=== PATIENT | female | born 1970 | race Hispanic/Latino ===

== ENCOUNTER 2020-01-30 20:25 | Inpatient (IN) | payer BC ==
[~2020-01-30] VITALS: Ht 147.3 cm; Wt 63.5 kg
[2020-01-30] MEDS ORDERED: ONDANSETRON HCL 4 MG/2 ML VIAL ONE (20:59)
[2020-01-30] MEDS ORDERED: KETOROLAC TROMETHAMINE 30MG/ML ONE (21:00)
[2020-01-30] MEDS ORDERED: SODIUM CHLORIDE 0.9% 1000ML 1,000 ML IV ONE (21:00)
[2020-01-30 21:04] LABS: BASOPHILS % (AUTO) 0.2 % (0.0-5.0); EOSINOPHILS % (AUTO) 0.2 % (0.0-8.0); HEMATOCRIT 37.2 % (36-48); LYMPHOCYTES % (AUTO) 16.3 % (21.0-51.0); MEAN CORPUSCULAR HEMOGLOBIN 30.6 pg (27.0-33.0); MEAN CORPUSCULAR HGB CONC 33.1 g/dL (32.0-36.0); MEAN CORPUSCULAR VOLUME 92.5 fL (79-99); MONOCYTES % (AUTO) 8.8 % (3.0-13.0); NEUTROPHILS % (AUTO) 74.3 % (40.0-77.0); PLATELET COUNT (AUTO) 415 K/uL (130-400); RED BLOOD CELL COUNT(AUTO) 4.02 MIL/uL (4.00-5.50); RED CELL DISTRIBUTION WIDTH 12.8 % (11.0-15.5); WHITE BLOOD COUNT (AUTO) 8.3 K/uL (4.8-10.8)
[2020-01-30 21:06] LABS: APPEARANCE,URINE CLOUDY (CLEAR); BILIRUBIN,URINE NEGATIVE (NEGATIVE); COLOR,URINE YELLOW (YELLOW); GLUCOSE, URINE (UA) NEGATIVE (NEGATIVE); KETONES,URINE NEGATIVE (NEGATIVE); LEUKOCYTE ESTERASE ,URINE SMALL (NEGATIVE); NITRATE,URINE NEGATIVE (NEGATIVE); OCCULT BLOOD,URINE NEGATIVE (NEGATIVE); PH,URINE 8.5 (5.0-8.0); PROTEIN,URINE 30 mg/dL (NEGATIVE)
[2020-01-30 21:16] LABS: CREATININE 0.7 mg/dL (0.5-1.5); POTASSIUM 3.3 mmol/L (3.5-5.1)
[2020-01-30 21:18] LABS: INR 0.93 (0.85-1.15); PARTIAL THROMBOPLASTIN TIME 29.1 SEC (26.3-35.5); PROTHROMBIN TIME 10.1 SEC (9.6-11.6)
[2020-01-30 21:20] LABS: ALBUMIN 3.8 g/dL (3.5-5.0); BILIRUBIN,DIRECT 0.2 mg/dL (0.0-0.3); BILIRUBIN,TOTAL 0.6 mg/dL (0.2-1.0); TOTAL PROTEIN, SERUM 8.1 g/dL (6.0-8.3)
[2020-01-30 22:01] LABS: BACTERIA,URINE Few /HPF (None Seen); RBC,URINE None Seen /HPF (0-1)
[2020-01-30 22:02] LABS: AMORPHOUS SEDIMENT,UR Many /LPF (None Seen); SQUAMOUS EPITHELIAL CELL,UR 0-2 /HPF (0-2)
[2020-01-31] VITALS (7 sets, daily range): BP systolic 97–125; BP diastolic 42–80
[2020-01-31] MEDS ORDERED: ZOSYN 3.375GM+NS 50ML 50 ML IV ONE (00:04)
[2020-01-31] MEDS ORDERED: LACTULOSE 20 GM/30 ML UDCUP PO PRN (00:30)
[2020-01-31] MEDS ORDERED: ACETAMINOPHEN 325 MG TAB PO PRN (00:30)
[2020-01-31] MEDS ORDERED: ONDANSETRON HCL 4 MG/2 ML VIAL IVP PRN (00:30)
--- NOTE | 2020-01-31 01:25 | NUR ---
ADMISSION PT AWAKE, ALERT AND VERBALLY RESPONSIVE. NO ACUTE DISTRESS NOTED, C/O PAIN TO ABD 6/10 AND NAUSEA AT THIS TIME (REFER TO eMAR FOR MEDICATION ADMINISTRATION). SPLINT AND SOFT CAST OBSERVED TO LEFT LOWER EXTREMITY STATED FRACTURED HER ANKLE AT HOME ON MONDAY, NEUROVASCULAR ASSESSMENT TO LEFT LOWER EXTREMITY WNL. PT ORIENTED TO ROOM. CALL LEUNG WITHIN REACH, BED IN LOWEST POSITION. Addendum: 01/31/20 at 0216 by VARUN BOYD RN Amended: Links added.
[2020-01-31] MEDS: SODIUM CHLORIDE 0.9% 1000ML 1,000 ML IV SCH ×3 (01:43→21:46)
[2020-01-31] MEDS: POTASSIUM CHLORIDE 10MEQ/100ML 100 ML IV PRN (01:43)
[2020-01-31] MEDS: LIDOCAINE HCL-MPF 1% 2ML VIAL IV PRN (01:43)
[2020-01-31] MEDS: MORPHINE SULFATE 2 MG/ML 1ML SYG IV PRN ×3 (01:44→21:45)
[2020-01-31] MEDS ORDERED: ZOSYN 3.375GM+NS 50ML 50 ML IV SCH (05:00)
[2020-01-31] MEDS: ZOSYN 3.375GM+NS 50ML 50 ML IV SCH ×3 (08:20→21:45)
[2020-01-31] MEDS: ENOXAPARIN SODIUM 40 MG/0.4 ML SYRINGE SQ SCH (08:21)
[2020-01-31] MEDS: FAMOTIDINE/PF 20 MG/2 ML VIAL IV SCH ×2 (08:21→21:45)
--- NOTE | 2020-01-31 14:16 | NUR ---
INITIAL Patient lives with daughter, Anne Klein, [phone]. No home services or DME. Patient needs help with ADL's and does not drive. Patient does work multimedia coordinator. PCP is Dr. Adame. Pharmacy is [facility] located in [place]. DCP is home. Addendum: 01/31/20 at 1418 by JANAE ACKERMAN SS Amended: Links added.
[2020-02-01 04:00] VITALS: BP 120/67
[2020-02-01 04:56] LABS: BASOPHILS % (AUTO) 0.3 % (0.0-5.0); EOSINOPHILS % (AUTO) 1.8 % (0.0-8.0); HEMATOCRIT 31.4 % (36-48); LYMPHOCYTES % (AUTO) 18.6 % (21.0-51.0); MEAN CORPUSCULAR HEMOGLOBIN 31.1 pg (27.0-33.0); MEAN CORPUSCULAR HGB CONC 33.1 g/dL (32.0-36.0); MONOCYTES % (AUTO) 8.9 % (3.0-13.0); NEUTROPHILS % (AUTO) 70.1 % (40.0-77.0); PLATELET COUNT (AUTO) 340 K/uL (130-400); RED BLOOD CELL COUNT(AUTO) 3.34 MIL/uL (4.00-5.50); RED CELL DISTRIBUTION WIDTH 12.9 % (11.0-15.5); WHITE BLOOD COUNT (AUTO) 8.8 K/uL (4.8-10.8)
[2020-02-01 05:18] LABS: ALANINE AMINOTRANSFERASE 225 U/L (12-78); ALBUMIN 2.8 g/dL (3.5-5.0); ASPARTATE AMINOTRANSFERASE 114 U/L (10-37); BILIRUBIN,TOTAL 1.3 mg/dL (0.2-1.0); CARBON DIOXIDE 25 mmol/L (21-32); CHLORIDE 103 mmol/L (101-111); CREATININE 0.6 mg/dL (0.5-1.5); GLOMERULAR FILTR. RATE CALC 113 mL/min (>60); GLUCOSE,RANDOM 86 mg/dL (70-105); POTASSIUM 3.4 mmol/L (3.5-5.1); SODIUM SERUM 137 mmol/L (136-145); TOTAL PROTEIN, SERUM 6.7 g/dL (6.0-8.3); UREA NITROGEN, BLOOD 7 mg/dL (7-18)
[2020-02-01] MEDS: ZOSYN 3.375GM+NS 50ML 50 ML IV SCH ×3 (05:35→21:07)
[2020-02-01 06:00] LABS: ERYTHROCYTE SEDIMENTATION RATE 49 MM/HR (0-20)
[2020-02-01 08:00] VITALS: BP 125/80
[2020-02-01] MEDS: FAMOTIDINE/PF 20 MG/2 ML VIAL IV SCH ×2 (09:56→21:11)
[2020-02-01] MEDS: SODIUM CHLORIDE 0.9% 1000ML 1,000 ML IV SCH ×2 (09:56→21:07)
[2020-02-01 11:00] VITALS: BP 115/67
[2020-02-01] MEDS: ENOXAPARIN SODIUM 40 MG/0.4 ML SYRINGE SQ SCH (14:02)
[2020-02-01 16:00] VITALS: BP 111/46
[2020-02-01 19:00] VITALS: BP 125/57
[2020-02-01] MEDS: LIDOCAINE HCL-MPF 1% 2ML VIAL IV PRN (21:06)
[2020-02-01] MEDS: MORPHINE SULFATE 2 MG/ML 1ML SYG IV PRN (21:07)
[2020-02-01] MEDS: POTASSIUM CHLORIDE 10MEQ/100ML 100 ML IV PRN (21:07)
[2020-02-01 23:00] VITALS: BP 102/45
[2020-02-02] VITALS (28 sets, daily range): BP systolic 96–131; BP diastolic 43–81
[2020-02-02] MEDS: SODIUM CHLORIDE 0.9% 1000ML 1,000 ML IV SCH ×3 (02:25→22:13)
[2020-02-02 05:02] LABS: BASOPHILS % (AUTO) 0.4 % (0.0-5.0); EOSINOPHILS % (AUTO) 2.4 % (0.0-8.0); HEMATOCRIT 31.3 % (36-48); LYMPHOCYTES % (AUTO) 20.7 % (21.0-51.0); MEAN CORPUSCULAR HEMOGLOBIN 31.1 pg (27.0-33.0); MEAN CORPUSCULAR HGB CONC 33.2 g/dL (32.0-36.0); MEAN CORPUSCULAR VOLUME 93.7 fL (79-99); MONOCYTES % (AUTO) 8.4 % (3.0-13.0); NEUTROPHILS % (AUTO) 67.8 % (40.0-77.0); PLATELET COUNT (AUTO) 340 K/uL (130-400); RED BLOOD CELL COUNT(AUTO) 3.34 MIL/uL (4.00-5.50); RED CELL DISTRIBUTION WIDTH 12.5 % (11.0-15.5)
[2020-02-02] MEDS: ZOSYN 3.375GM+NS 50ML 50 ML IV SCH ×4 (05:06→22:13)
[2020-02-02] MEDS: MORPHINE SULFATE 2 MG/ML 1ML SYG IV PRN ×2 (05:06→15:35)
[2020-02-02 05:30] LABS: ALANINE AMINOTRANSFERASE 152 U/L (12-78); ALBUMIN 2.6 g/dL (3.5-5.0); ASPARTATE AMINOTRANSFERASE 47 U/L (10-37); BILIRUBIN,TOTAL 0.7 mg/dL (0.2-1.0); CARBON DIOXIDE 22 mmol/L (21-32); CHLORIDE 104 mmol/L (101-111); CREATININE 0.5 mg/dL (0.5-1.5); GLOMERULAR FILTR. RATE CALC 140 mL/min (>60); GLUCOSE,RANDOM 69 mg/dL (70-105); POTASSIUM 3.3 mmol/L (3.5-5.1); SODIUM SERUM 137 mmol/L (136-145); TOTAL PROTEIN, SERUM 6.7 g/dL (6.0-8.3); UREA NITROGEN, BLOOD 10 mg/dL (7-18)
[2020-02-02 06:39] LABS: ERYTHROCYTE SEDIMENTATION RATE 38 MM/HR (0-20)
[2020-02-02] MEDS: ENOXAPARIN SODIUM 40 MG/0.4 ML SYRINGE SQ SCH (09:00)
[2020-02-02] MEDS: FAMOTIDINE/PF 20 MG/2 ML VIAL IV SCH ×2 (09:00→22:13)
[2020-02-02] MEDS: POTASSIUM CHLORIDE 10MEQ/100ML 100 ML IV PRN (09:54)
--- NOTE | 2020-02-02 11:12 | NUR ---
plan of care discussed with [place] d[place]ado planned for Monday- when tolerating food- Monday evening or Monday Addendum: 02/02/20 at 1113 by NEL ARIZA RN CM Amended: Links added.
--- NOTE | 2020-02-02 12:18 | NUR ---
Pt to surgery via bed without incident.
[2020-02-02] MEDS ORDERED: ROCURONIUM 10MG/1ML SYR 10 MG/ML ML ONE (12:19)
[2020-02-02] MEDS ORDERED: PROPOFOL 10 MG/ML 20ML VIAL IV ONE (12:19)
[2020-02-02] MEDS ORDERED: LIDOCAINE PF 2% 5ML ABBOJECT ONE (12:19)
[2020-02-02] MEDS ORDERED: MIDAZOLAM HCL 1 MG/ML 2ML VIAL ONE (12:19)
[2020-02-02] MEDS ORDERED: FENTANYL CITRATE PF 50 MCG/1 ML 2ML VIAL ONE (12:19)
[2020-02-02] MEDS ORDERED: SUCCINYLCHOLINE CHLORIDE 20 MG/ML 10 ML VIAL ONE (12:20)
[2020-02-02] MEDS ORDERED: BUPIVACAINE/PF 0.5% 30ML VIAL ONE (12:27)
[2020-02-02] MEDS ORDERED: DEXAMETHASONE SOD PHOSPHATE 4 MG/ML 1ML VIAL ONE (13:02)
[2020-02-02] MEDS ORDERED: ONDANSETRON HCL 4 MG/2 ML VIAL ONE (13:02)
[2020-02-02] MEDS ORDERED: GLYCOPYRROLATE 1 MG/5 ML SYRINGE ONE (13:10)
[2020-02-02] MEDS ORDERED: NEOSTIGMINE 5MG/5ML SYR IV ONE (13:10)
[2020-02-02] MEDS ORDERED: MEPERIDINE-PF 25 MG/ML SYG ONE (14:37)
--- NOTE | 2020-02-02 15:20 | NUR ---
Pt. returned to floor via bed without incident; VSS, c/o 8/10 abdominal postop pain. PRN pain med given.
[2020-02-02] MEDS ORDERED: MORPHINE SULFATE 4 MG/1ML SYG IVP PRN (15:45)
[2020-02-03] MEDS: MORPHINE SULFATE 2 MG/ML 1ML SYG IV PRN ×2 (00:22→04:01)
[2020-02-03 03:00] VITALS: BP 104/51
[2020-02-03] MEDS: ZOSYN 3.375GM+NS 50ML 50 ML IV SCH ×2 (04:03→13:22)
[2020-02-03 05:05] LABS: HEMATOCRIT 31.5 % (36-48); MEAN CORPUSCULAR HEMOGLOBIN 30.7 pg (27.0-33.0); MEAN CORPUSCULAR HGB CONC 33.3 g/dL (32.0-36.0); MEAN CORPUSCULAR VOLUME 92.1 fL (79-99); PLATELET COUNT (AUTO) 389 K/uL (130-400); RED BLOOD CELL COUNT(AUTO) 3.42 MIL/uL (4.00-5.50); RED CELL DISTRIBUTION WIDTH 12.3 % (11.0-15.5); WHITE BLOOD COUNT (AUTO) 8.1 K/uL (4.8-10.8)
[2020-02-03 05:30] LABS: ALBUMIN 2.6 g/dL (3.5-5.0); BILIRUBIN,TOTAL 0.6 mg/dL (0.2-1.0); CREATININE 0.5 mg/dL (0.5-1.5); POTASSIUM 3.4 mmol/L (3.5-5.1); TOTAL PROTEIN, SERUM 6.7 g/dL (6.0-8.3)
[2020-02-03 07:29] VITALS: BP 99/64
[2020-02-03] MEDS: SODIUM CHLORIDE 0.9% 1000ML 1,000 ML IV SCH (08:16)
[2020-02-03] MEDS: FAMOTIDINE/PF 20 MG/2 ML VIAL IV SCH (09:26)
[2020-02-03] MEDS: ENOXAPARIN SODIUM 40 MG/0.4 ML SYRINGE SQ SCH (09:26)
[2020-02-03 10:50] VITALS: BP 117/55
[2020-02-03] MEDS ORDERED: IBUPROFEN 800 MG TAB PO PRN (12:45)
[2020-02-03] MEDS ORDERED: IBUP-2077 PO (16:27)
== END 2020-02-03 17:25 | disposition home or self-care (01) | DRG 419 ==
LOC: EDH 20:25 → EDHIP 01-31 00:25 → 4CH 01-31 01:09
PROVIDERS: ADMIT Internal Medicine; ATTEND Internal Medicine
PROC: 0FT44ZZ Resection of Gallbladder, Percutaneous Endoscopic Approach (ICD-10-PCS; principal; 2020-02-02 12:38)
DX: K80.00 Calculus of gallbladder with acute cholecystitis without obstruction (principal); K76.0 Fatty (change of) liver, not elsewhere classified; E87.6 Hypokalemia; E78.5 Hyperlipidemia, unspecified; I10 Essential (primary) hypertension; E11.9 Type 2 diabetes mellitus without complications; Z98.51 Tubal ligation status
CPT/HCPCS: 36415; 74176; 76705; 78226; 80048; 80053; 80076; 81001; 83690; 84132; 84145; 85025; 85027; 85610; 85651; 85730; 86140; 93005; A9537; G0378; J0330; J1100; J1650; J1885; J2001; J2175; J2250; J2405; J2543; J2704; J2710; J3010; J3490; J7030; J7120